=== PATIENT | female | born 1970 | race Caucasian/White ===

== ENCOUNTER 2016-05-25 10:30 | Emergency (ER) ==
--- NOTE | 2016-05-25 11:17 | PROVIDER DOCUMENTATION ---
HPI-General Adult - General Chief Complaint: B/P Problems Stated Complaint: B/P PROBLEMS Time Seen by Provider: 05/25/16 10:44 Source: patient Allergies/Adverse Reactions: Patient Allergies Allergy/AdvReac Type Severity Reaction Status Date / Time No Known Allergies Allergy Verified 05/25/16 10:44 Home Medications: Home Medication List Medication Instructions Recorded Confirmed Last Taken Type Clonidine [Catapres] 0.2 mg PO 4XDAY 05/25/16 05/25/16 Unknown History Hydrocodone/APAP 5 mg/325 mg 1 each PO Q8H PRN PRN #10 tablet 05/25/16 Unknown Rx [[place]ependence-5] Levofloxacin [Levaquin] 750 mg PO DAILY #7 tablet 05/25/16 Unknown Rx Lisinopril 20 mg PO BID 05/25/16 05/25/16 Unknown History - History of Present Illness -Gen Adult Nature of Presenting Problems: patient is a 45 y/o F that presents to the ER with 2 weeks of elevated BP. She hasn't missed dose of medication. Denies chest pain, edema, or swelling. She also had bilateral leg pain that goes to hips that began 4 days ago. she has decreased mobility. denies injury Location of Pain/Injury: reports: lower extremity Pain Radiation: reports: no radiation Quality of Pain: reports: dull Severity: reports: moderate Onset/Duration: reports: gradual, 4 days ago, 5 days ago Timing: reports: still present, constant Context/Activities at Onset: reports: none Modifying Factors: worse with: movement Associated Symptoms: reports: trouble walking. denies: chest pain, diarrhea, dizziness, fever/chills, genitourinary problems, joint pain, nausea, shortness of breath, vomiting Similar Symptoms Previously?: No Recently seen or treated by another doctor?: No Review of Systems - Adult - REVIEW OF SYSTEMS - ADULT Constitutional: denies: chills, fever Eyes: reports: no symptoms reported Ears, Nose, Mouth & Throat: reports: no symptoms reported Cardiovascular: denies: chest pain, edema, orthopnea, palpitations, syncope Respiratory: denies: cough, shortness of breath, wheezing Gastrointestinal: denies: abdominal pain, diarrhea, nausea, vomiting Genitourinary: reports: no symptoms reported Musculoskeletal: reports: muscle aches. denies: back pain, neck pain Integumentary: reports: no symptoms reported Neurological: reports: no symptoms reported Psychiatric: reports: no symptoms reported Endocrine: reports: no symptoms reported Hematologic/Lymphatic: reports: no symptoms reported Allergic/Immunologic: reports: no symptoms reported All Other Systems: Reviewed and Negative Past History - Adult - PAST MEDICAL HISTORY-ADULT Review of Records: reports: Old Records Reviewed, Nursing Assessment Review, Medications Reviewed Cardiovascular: reports: HTN Musculoskeletal: reports: fibromyalgia Neurological: reports: headaches/migraines - PRIOR SURGERIES/PROCEDURES Surgical/Procedure History: reports: BTL - IMMUNIZATION STATUS Childhood Immunizations: See Nurse Assessment Flu Vaccine: See Nurse Assessment - FAMILY HISTORY Family History: reviewed, not pertinent - SOCIAL HISTORY Smoking: cigarettes, less than 1 pack/day Living Situation: family Physical Exam-General - PHYSICAL EXAM-ADULT Initial Vital Signs Reviewed: Yes - CONSTITUTIONAL General Appearance: alert, no apparent distress - EYES Eyes: PERRL/EOMI, pink conjunctivae - HEAD, EARS, NOSE, MOUTH & THROAT HENMT: normocephalic/atraumatic, moist mucous membranes, normal ENT inspection - NECK Neck: non-tender, full range of motion, normal inspection - RESPIRATORY Respiratory: lungs clear, normal breath sounds, no respiratory distress, no accessory muscle use - CARDIOVASCULAR Cardiovascular: normal peripheral pulses, regular rate, rhythm, no murmur - GASTROINTESTINAL (ABDOMEN) Abdominal Exam: normal bowel sounds, non tender, soft - MUSCULOSKELETAL Back Exam: no CVA tenderness, no vertebral tenderness Extremity: no calf tenderness, normal capillary refill, pelvis stable, tenderness (mild bilateral hips but has full ROM) - SKIN Integumentary: normal color, warm/dry - NEUROLOGIC Neurologic: grossly normal, no motor/sensory deficits - PSYCHIATRIC Psych/Mental Status: normal mood/affect, normal thought content, normal thought process, oriented x 3 Progress - PLAN OF CARE/RESULTS Progress/Plan/Lab Results: plan of care-labs, xray. ekg Vital Signs Temp Pulse Resp BP Pulse Ox 05/25/16 12:48 130/72 05/25/16 10:39 98.0 F 79 16 185/105 99 No Known Allergies Allergy (Verified 05/25/16 10:44) Clonidine [Catapres] 0.2 mg PO 4XDAY 05/25/16 Hydrocodone/APAP 5 mg/325 mg [Independence-5] 1 each PO Q8H PRN PRN #10 tablet Levofloxacin [Levaquin] 750 mg PO DAILY #7 tablet 05/25/16 Lisinopril 20 mg PO BID 05/25/16 Laboratory 05/25/16 05/25/16 05/25/16 13:05 11:43 11:43 WBC 10.09 RBC 4.82 Hgb 14.6 Hct 41.8 MCV 86.7 MCH 30.3 MCHC 34.9 RDW Std Deviation 13.1 Plt Count 270 MPV 9.9 Immature Gran % (Auto) 0.2 Neut % (Auto) 69.0 Lymph % (Auto) 23.4 [place] % (Auto) 6.1 Eos % (Auto) 0.9 Baso % (Auto) 0.4 Immature Gran # (Auto) 0.02 Neut # (Auto) 6.96 H Lymph # (Auto) 2.36 [place] # (Auto) 0.62 H Eos # (Auto) 0.09 Baso # (Auto) 0.04 PT 13.5 INR 1.00 APTT (Factor Assay) 31.9 D-Dimer 0.27 Sodium Potassium Chloride Carbon Dioxide Anion Gap BUN Creatinine Estimated GFR/1.73 m2 BUN/Creatinine Ratio Glucose Calculated Osmolality Calcium Magnesium Total Bilirubin AST ALT Alkaline Phosphatase Creatine Kinase Troponin T Ovp-C-Gwyotdnrkmg Pept Total Protein Albumin Globulin Albumin/Globulin Ratio Urine Source CLEAN CATCH Urine Color YELLOW Urine Clarity CLEAR Urine pH 7.0 Ur Specific [place] 1.000 Urine Protein NEGATIVE Urine Ketones NEGATIVE Urine Blood NEGATIVE Urine Nitrite POSITIVE A Urine Bilirubin NEGATIVE Urine Urobilinogen NORMAL Urine WBC 1+ A Urine Glucose NEGATIVE 05/25/16 05/25/16 05/25/16 11:43 11:43 11:43 WBC RBC Hgb Hct MCV MCH MCHC RDW Std Deviation Plt Count MPV Immature Gran % (Auto) Neut % (Auto) Lymph % (Auto) [place] % (Auto) Eos % (Auto) Baso % (Auto) Immature Gran # (Auto) Neut # (Auto) Lymph # (Auto) [place] # (Auto) Eos # (Auto) Baso # (Auto) PT INR APTT (Factor Assay) D-Dimer Sodium 136 Potassium 3.3 L Chloride 102 Carbon Dioxide 22 L Anion Gap 12 BUN 6 L Creatinine 0.6 Estimated GFR/1.73 m2 > 60 BUN/Creatinine Ratio 10 Glucose 108 H Calculated Osmolality 270 Calcium 9.6 Magnesium 1.8 Total Bilirubin 0.30 AST 17 ALT 15 Alkaline Phosphatase 99 Creatine Kinase 51 Troponin T < 0.010 Qvk-P-Dcqcykfrjax Pept 41 Total Protein 7.3 Albumin 4.2 Globulin 3.0 Albumin/Globulin Ratio 1.0 Urine Source Urine Color Urine Clarity Urine pH Ur Specific [place] Urine Protein Urine Ketones Urine Blood Urine Nitrite Urine Bilirubin Urine Urobilinogen Urine WBC Urine Glucose Orders Category Date Time Status Cardiac Monitoring DIRECTED Care 05/25/16 11:23 Active Oxygen Therapy- ED Nursing DIRECTED Care 05/25/16 11:23 Active Saline Loc NOW Care 05/25/16 11:23 Active CHEST-PORTABLE [RAD] Stat Exams 05/25/16 11:23 Completed CBC WITH ELECTRONIC DIFF [HEME] Stat Lab 05/25/16 11:43 Completed CK PROFILE [SP CHEM] Stat Lab 05/25/16 11:43 Completed COMPREHENSIVE METABOLIC PANEL [CHEM] Stat Lab 05/25/16 11:43 Com[address] D-DIMER PL [COAG] Stat Lab 05/25/16 11:43 Completed MAGNESIUM [CHEM] Stat Lab 05/25/16 11:43 Completed PRO B-NATRIURETIC PEPTIDE Stat Lab 05/25/16 11:43 Completed PROTIME WITH INR PL [COAG] Stat Lab 05/25/16 11:[address] [COAG] Stat Lab 05/25/16 11:43 Completed TROPONIN T Stat Lab 05/25/16 11:43 Completed UA [URINALYSIS PL W/POSS RFLX CULT] [URINALYSIS] Stat Lab 05/25/16 13:05 Results 0.9% Sodium Chloride Inj [Ns] 1,000 ml Med 05/25/16 11:23 Discontinued IV 999 mls/hr Hydrocodone/APAP 10 mg/325 mg [Independence-10] Med 05/25/16 12:29 Discontinued 1 each PO NOW ONE Levofloxacin [Levaquin] Med 05/25/16 13:52 Discontinued 750 mg PO NOW ONE Ondansetron Odt [Zofran Odt] Med 05/25/16 12:55 Discontinued 4 mg PO NOW ONE Potassium Chloride E.r. [Klor-Con] Med 05/25/16 12:25 Discontinued 40 meq PO NOW ONE EKG [EKG] Stat Ther 05/25/16 11:23 Draft pt will be d/c home f/u with pcp, rx given, pt was clinically stable. - EKG 1 Time of EKG reading by physician:: 11:54 EKG Read and Signed by:: Catalina Quintero EKG Interpretation (*Must complete 3 of following elements*): Normal Rate: 75 Rhythm: NSR [place]: normal QRS: normal [place] Interval: normal ST Wave: normal - XRAY 1 XRAY Study: Chest Impression: Normal XRAY Interpretation: nad Departure - Departure Time of Disposition Order: 13:53 DIAGNOSIS: Hypokalemia UTI (urinary tract infection) Qualifiers: Urinary tract infection type: acute cystitis Hematuria presence: without hematuria Qualified Code(s): N30.00 - Acute cystitis without hematuria Disposition: HOME 01 Certified Medical Emergency: Emergent Condition: Stable Additional Instructions: ED Follow Up Instructions: You have been treated by a care provider in the Emergency Department. These instructions are being provided to you so you can have an understanding of how to care for yourself upon discharge. Upon discharge from the Emergency Department, you are responsible for making arrangements for follow-up care by a physician of your choice. Take all prescribed medications as directed. Return to the Emergency Department immediately for any new or worsening symptoms. You may call the Physician Referral phone number at [phone] to obtain a list of Physicians who are taking new patients. Referrals: Gene Santacruz MD [Primary Care Provider] - Call for Appoint. 1-2days Instructions: Urinary Tract Infection, [id number] Attestation - Scribe Verification/Attestation Scribe:: James Parks Acting as Scribe for:: Catalina Quintero Scribe documention review:: This chart was documented by a scribe and accurately reflects the service the provider performed and the decisions made by the provider. Physician Attestation - Physician Attestation I, the provider, attest to the following statement:: Catalina Quintero Physician documentation Attestation:: This documentation recorded by the scribe accurately reflects the service I personally performed and the decisions made by me.
[2016-05-25] MEDS ORDERED: NS 1,000 ML IV ONE (11:23)
[2016-05-25 11:44] LABS: MANUAL DIFF NEEDED? NO
[2016-05-25 11:47] LABS: BASO% 0.4 % (0.0-0.8); EOS# 0.09 X1000 (0.0-0.7); EOS% 0.9 % (0.0-10.0); HEMATOCRIT 41.8 % (37.0-47.0); HEMOGLOBIN 14.6 g/dL (12.0-16.0); IMM GRAN# 0.02 X1000 (0.0-0.04); IMM GRAN% 0.2 % (0.0-0.5); LYMPH# 2.36 X1000 (1.2-3.4); LYMPH% 23.4 % (20.5-51.1); MCH 30.3 PG (27-31); MCHC 34.9 g/dL (33-37); MCV 86.7 FL (81-99); MONO# 0.62 X1000 (0.11-0.59); MONO% 6.1 % (1.7-9.3); MPV 9.9 FL (7.4-10.4); PLT 270 X1000 (130-400); RBC 4.82 XMIL (4.2-5.4)
[2016-05-25 12:02] LABS: PROTIME 13.5 Seconds (12.1-15.5)
[2016-05-25 12:03] LABS: PTT PL 31.9 Seconds (22.6-43.9)
--- NOTE | 2016-05-25 12:03 | EKG Report ---
Test Performed on : 05/25/2016 11:54:37 AM Test Reason : CP Blood Pressure : / mmHG Vent. Rate : 075 BPM Atrial Rate : 075 BPM P-R Int : 148 ms QRS Dur : 078 ms QT Int : 400 ms P-R-T Axes : 050 039 063 degrees QTc Int : 446 ms Normal sinus rhythm. Normal ECG No previous ECGs available Unconfirmed Result
[2016-05-25 12:04] LABS: AGAP 12; ALBUMIN 4.2 g/dL (3.5-5.0); ALKALINE PHOSPHATASE 99 U/L (32-104); BUN 6 mg/dL (8-22); CALCIUM 9.6 mg/dL (8.8-10.2); CHLORIDE 102 mmol/L (98-107); CK PROFILE 51 U/L (24-173); COSMO 270; GOT 17 U/L (10-30); GPT 15 U/L (10-36); MAGNESIUM 1.8 mg/dL (1.5-2.7); POTASSIUM 3.3 mmol/L (3.5-5.1); SODIUM 136 mmol/L (136-145); TCO2 22 mmol/L (25-35); TOTAL PROTEIN 7.3 g/dL (6.3-8.3)
[2016-05-25] MEDS ORDERED: KLOR-CON PO ONE (12:25)
[2016-05-25] MEDS ORDERED: NORCO-10 PO ONE (12:29)
--- NOTE | 2016-05-25 12:45 | Diag Imaging Result Document ---
PROCEDURE NAME: CHEST-PORTABLE - 05/25/2016 AP PORTABLE CHEST ERECT AT 1127 HOURS: FINDINGS: There is no evidence of acute cardiac or pulmonary disease. There are no previous studies. IMPRESSION: No acute disease.
[2016-05-25] MEDS ORDERED: ZOFRAN ODT PO ONE (12:55)
[2016-05-25 13:25] LABS: URINE CULTURE PL NEEDED? NO; URINE SOURCE CLEAN CATCH
[2016-05-25 13:51] LABS: BILIRUBIN URINE NEGATIVE (NEGATIVE); BLOOD URINE NEGATIVE (NEGATIVE); CLARITY CLEAR (CLEAR); COLOR YELLOW; GLUCOSE URINE NEGATIVE (NEGATIVE); LEUKOCYTES URINE 1+ (NEGATIVE); NITRITE URINE POSITIVE (NEGATIVE); PROTEIN URINE NEGATIVE (NEGATIVE); UROBILINOGEN URINE NORMAL
[2016-05-25] MEDS ORDERED: LEVAQUIN PO ONE (13:52)
[2016-05-25 13:54] LABS: URINE EPITHELIAL CELLS <10 /HPF (<10); URINE RBC <10 /HPF (<10); URINE WBC <10 /HPF (<10)
[2016-05-25 14:47] VITALS: BP 116/70
== END 2016-05-25 14:47 | disposition home or self-care (01) ==
LOC: P.ED 10:30
DX: N30.00 Acute cystitis without hematuria (principal); E87.6 Hypokalemia; I10 Essential (primary) hypertension; M79.605 Pain in left leg; M79.604 Pain in right leg; M25.552 Pain in left hip; M25.551 Pain in right hip; M79.1 Myalgia; M79.7 Fibromyalgia; R51 Headache; Z79.899 Other long term (current) drug therapy
CPT/HCPCS: 71010; 80053; 81001; 82550; 83735; 83880; 84484; 85025; 85379; 85610; 85730; 93005; 96360; J7030